=== PATIENT | female | born 1965 | race Caucasian/White ===

== ENCOUNTER 2019-07-13 01:32 | Emergency (ER) | payer SELFPAY ==
[~2019-07-13] VITALS: Ht 170.2 cm; Wt 63.5 kg
[2019-07-13 01:40] VITALS: BP 134/78
--- NOTE | 2019-07-13 01:42 | NUR ---
PT AAOX4. AMBULATORY WITH STEADY GAIT. BIB SELF C/O L KNEE PAIN AND BACK PAIN FOR THE PAST TWO WEEKS. PT STATED SHE HAD SLIPPED TWO WEEKS. AGO. PT ABLE TO AMBULATE FREELY. NO ACUTE DISTRESS NOTED. VSS.
[2019-07-13] MEDS ORDERED: IBUPROFEN 600 MG TABLET PO ONE ×2 (02:10→02:30)
--- NOTE | 2019-07-13 05:09 | NUR ---
Patient discharged to home in stable condition. Written and verbal after care instructions given. Patient verbalizes understanding of instruction.
== END 2019-07-13 05:10 | disposition home or self-care (01) ==
LOC: ER 01:32
DX: S83.8X2A Sprain of other specified parts of left knee, initial encounter (principal); M54.5 Low back pain; G89.29 Other chronic pain; W01.198A Fall on same level from slipping, tripping and stumbling with subsequent striking against other object, initial encounter; Y93.89 Activity, other specified; Y92.89 Other specified places as the place of occurrence of the external cause; Y99.8 Other external cause status